=== PATIENT | female | born 1960 | race Caucasian/White ===

== ENCOUNTER 2020-10-31 14:49 | Emergency (ER) | payer OTHER ==
[~2020-10-31] VITALS: Ht 167.6 cm; Wt 72.6 kg
[2020-10-31 15:21] LABS: URINE BILIRUBIN NEGATIVE (Negative); URINE BLOOD 1+ (Negative); URINE CLARITY CLEAR; URINE COLOR YELLOW; URINE GLUCOSE-RANDOM NEGATIVE (Negative); URINE KETONES NEGATIVE (Negative); URINE LEUKOCYTES-REFLEX 1+ (Negative); URINE NITRITE-REFLEX NEGATIVE (Negative); URINE PROTEIN NEGATIVE (Negative); URINE UROBILINOGEN 0.2 E.U./dl (0.2-1.0)
[2020-10-31 15:29] LABS: RENAL EPITHELIAL CELLS 0-3 Few /LPF (None Seen); SQUAMOUS 0-3 Few /LPF (0-3); TRANSITIONAL EPITHEL CELL 0-3 Few /LPF (None Seen); WBC CLUMPS Few (None Seen)
[2020-10-31 15:30] LABS: BACTERIA-REFLEX >30 Many /HPF (None Seen); CASTS None Seen /LPF (None Seen); CRYSTALS None Seen /LPF (None Seen); MUCUS 0-3 Light strn/LPF (None Seen)
[2020-10-31 15:34] LABS: ABSOLUTE BASOPHILS 0.1 thou/uL (0.0-0.2); ABSOLUTE LYMPHOCYTES 1.3 thou/uL (0.8-5.3); ABSOLUTE MONOCYTES 0.7 thou/uL (0.0-1.2); ABSOLUTE NEUTROPHILS 6.2 thou/uL (1.6-8.1); BASOPHILS 0.7 %; EOSINOPHILS 0.6 %; HEMATOCRIT 38.7 % (37.0-47.0); HEMOGLOBIN 13.3 gm/dL (12.0-15.0); LYMPHOCYTES 15.8 %; MCH 31.5 pg (26.0-34.0); MCHC 34.5 g/dL (28.0-37.0); MCV 91.4 fL (80.0-100.0); MONOCYTES 8.1 %; MPV 7.2 fl. (7.2-11.1); NUCLEATED RBCS 0 /100WBC; PLATELET COUNT* 244 thou/uL (150-400); POLYS 74.8 %; RBC 4.23 mil/uL (4.20-5.00); RDW-CV 13.7 % (10.5-14.5); WBC 8.3 thou/uL (4.0-11.0)
[2020-10-31 15:44] LABS: CALCIUM 8.9 mg/dL (8.5-10.1); POTASSIUM 3.9 mmol/L (3.5-5.1)
[2020-10-31 15:49] LABS: TOTAL BILIRUBIN 1.1 mg/dL (<0.1-1.0)
--- NOTE | 2020-10-31 16:18 | EKG ---
[place] [address] ELECTROCARDIOGRAM REPORT Name: JUDITH HARPER Room: [facility]#: [id number] Admission: Attend Phys: Discharge: Date of : 62 Date of Service: 10/31/201515 Report #: [id number] THIS REPORT FOR: //name// [facility] ED Test Date: 2020-10-31 Test Time: 15:16:52 Pat Name: JUDITH HARPER Department: Room: Gender: F Mandrel Puller: : 1960 Requested By: Keith Stokes Order Number: [id number] MD: Remberto Jimenez Measurements Intervals [place] Rate: 74 P: 56 SD: 132 QRS: 33 QRSD: 86 T: 49 QT: 398 QTc: 442 Interpretive Statements Sinus rhythm No previous ECG available for comparison Electronically Signed On 10-31-2020 16:17:54 [employer] by Remberto Jimenez [email or web address] <ELECTRONICALLY SIGNED> By: Remberto Jimenez MD, [facility] 10/31/20 1617 1516 1516 Remberto Jimenez MD, FACC /EPI
[2020-10-31] MEDS ORDERED: KEFLEX500 M1 PO (16:43)
[2020-10-31] MEDS ORDERED: HYDROCODON-ACE1 EAC7 PO (16:43)
[2020-10-31] MEDS ORDERED: ONDANSETRON ODT4 MG PO (16:43)
[2020-10-31] MEDS ORDERED: FLOMAX0.4 MG PO (16:43)
[2020-10-31 17:25] VITALS: BP 165/83
== END 2020-10-31 17:25 | disposition home or self-care (01) ==
LOC: M.ERS 14:49
PROVIDERS: Physician Assistant
DX: N20.0 Calculus of kidney (principal); N39.0 Urinary tract infection, site not specified